=== PATIENT | female | born 2000 | race Caucasian/White ===

== ENCOUNTER 2021-07-05 08:39 | Observation (INO) ==
[2021-07-05 08:49] VITALS: BMI 32.9
--- NOTE | 2021-07-05 09:33 | DR.PREG ---
HPI Time seen Time Seen by Provider: 07/05/21 09:28 PCP Primary Care Physician: RACHANA HPI Comment HPI Comment: PATIENT IS 21YR OLD FEMALE IN ER WITH RLQ ABDOMINAL PAIN TIMES 2 DAYS. . LMP 0CT 2020. FIRST . DENIES VAGINAL BLEEDING OR TRAUMA. SHE IS 16 WEEKS . Chief Complaint Chief Complaint Doctors Comments: RLG ABDOMINAL PAIN TIMES 2 DAYS. Chief Complaint:: PT C/O LOWER ABD PAIN THAT HAS BEEN GOING ON FOR THE PAST 2 DAYS. PATIENT DENIES ANY VAGINAL BLEEDING OR DISCHARGE. PATIENT IS KNOWN TO BE A G1,P0,A0. ELKIN 12/16/21 COVID-19 Coronavirus risk:travel/contact w/high risk person: No Has patient experienced Coronavirus symptoms: No Nurses Notes Reviewed Nurses Notes Review: Yes Source History Provided: Patient Mode of Arrival Mode of Arrival: Ambulatory Context Complains of: Pelvic pain History of: None : 1 Para: 0 Abortions: 0 Location Location: pain: RLQ Quality Vaginal fluid leakage color: denies None Timing Onset of Chief Complaint: 07/03/21 Came on: Suddenly Pain: Present Now Pain: Regular Severity Vaginal Bleeding: Deferred Vaginal Leakage: None Associated Signs & Symptoms Asociated signs & symptoms: None PMH PMH Past Medical History: No Past Surgical History: No Family History History of Family Medical Conditions: No Social History Does patient currently use any type of tobacco product: Yes Have you used tobacco products in the last 12 months: Yes Type of Tobacco Use: VAPE Does any household member use tobacco: Yes Alcohol Use: None Do you use any recreational Drugs:: No Lives With: Family Lives Where: Home Travel Risk Coronavirus risk:travel/contact w/high risk person: No Has patient experienced Coronavirus symptoms: No Infectious screening In the last 2 months have you had wt loss of >10#?: NO Have you had fever, night sweats or hemotysis?: No Have you traveled outside the country in the last 6 months?: No Isolation: Standard ROS Review of Systems Constitutional: See HPI, Weakness and Fatigue; negative Fever Eyes: No Symptoms Reported and See HPI ENTM: No Symptoms Reported and See HPI; negative Nose Discharge and Nose Congestion Respiratoy: No Symptoms Reported and See HPI; negative Moist Cough, Short of Breath and Wheezing Cardiovascular: No Symptoms Reported and See HPI; negative Chest Pain Gastrointestinal/Abdominal: See HPI, Abdominal Pain and Vomiting; negative Diarrhea Genitourinary: No Symptoms Reported and See HPI; negative Dysuria, Frequency and Hematuria Neurological: See HPI and Weakness; negative Headache and Dizziness Musculoskeletal: No Symptoms Reported and See HPI; negative Back Pain Integumentary: No Symptoms Reported and See HPI; negative Rash and Juandice Hematologic/Lymphatic: No Symptoms Reported and See HPI; negative Easy Bruising Endocrine: No Symptoms Reported and See HPI; negative Increased Thirst and Increased Urine Psychiatric: No Symptoms Reported and See HPI All Other Systems: Reviewed and Negative PE Vital Signs Vitals: Temperature 98.1 F Pulse Rate 97 Respiratory Rate 20 Blood Pressure 149/94 O2 Sat by Pulse Oximetry 97 General Limitations: No Limitations General Appearance: Alert and In No Apparent Distress Head Head Exam: Normal Inspection Eyes Eye exam: Normal Appearance; negative Scleral Icterus and Conjunctival Injection ENT ENT Exam: Normal Exam, Normal Oropharynx, Normal External Ear Exam and TM's Normal Bilaterally Neck Neck Exam: Normal Inspection; negative Tenderness Chest Chest Inspection: Normal Inspection and Symmetric Chest Wall Rise; negative Tenderness Respiratory Respiratory Exam: Normal Lung Sounds Bilat; negative Accessory Muscle Use, Chest Wall Tenderness and Respiratory Distress Respiratory Exam: Bilateral: Clear to Auscultation Cardiovascular Cardiovascular Exam: Regular Rate, Normal Rhythm and Normal Heart Sounds; negative Systolic Murmur and Diastolic Murmur Abdominal Exam Abdominal Exam: Normal Bowel Sounds, Soft and Tenderness Abdominal Tenderness: RLQ, LLQ, Suprapubic and Moderate Blood: None Amniotic fluids: None Nitrazine: Negative Back Back Exam: Normal Inspection; negative (R) CVA Tenderness and (L) CVA Tenderness Extremeties Extremities Exam: Normal Inspection and Normal Capillary Refill Neurologic Neurological Exam: Alert and Oriented X3; negative Motor Sensory Deficit Psychiatric Psychiatric Exam: Normal Affect and Normal Mood Skin Skin Exam: Warm, Dry, Intact and Normal Color MDM Additional Information Obtained Additional Information Obtained From: Family Differential Diagnosis Differential Diagnosis: threatened, Abruptio placentae, Appendicitis, Placenta previa, Pyelonephritis: acute and Urinary tract infection COURSE Treatment Treatment: SEE ORDERS DONE WHILE PATIENT IN ER. NS 1L IV BOLUS. TYLENOL 1GM IVPB IN ER. Reevaluation 1st: Improved Education/Counseling Education/Counseling: Patient and Family Educated On: Diagnosis ROR Labs Reviewed Laboratory Results Reviewed?: Yes Result Diagrams: 07/06/21 05:40 07/06/21 05:40 Laboratory: WBC 17.1 X10^3/uL (3.6-10.0) H 07/05/21 09:53 RBC 4.35 X10^6/uL (3.5-5.4) 07/05/21 09:53 Hgb 13.2 g/dL (12.0-16.0) 07/05/21 09:53 Hct 38.1 % (36.0-47.0) 07/05/21 09:53 MCV 87.6 fL (80.0-100.0) 07/05/21 09:53 MCH 30.3 pg (27.0-34.0) 07/05/21 09:53 MCHC 34.6 g/dL (33.0-35.0) 07/05/21 09:53 RDW 12.8 % (11.6-16.5) 07/05/21 09:53 Plt Count 246 X10^3/uL (150.0-450.0) 07/05/21 09:53 MPV 9.6 fL (7.4-11.0) 07/05/21 09:53 Neut % (Auto) 87.4 % (42.0-75.0) H 07/05/21 09:53 Lymph % (Auto) 8.7 % (21.0-51.0) L 07/05/21 09:53 [place] % (Auto) 3.4 % (0.0-13.0) 07/05/21 09:53 Eos % (Auto) 0.1 % (0.9-2.9) L 07/05/21 09:53 Baso % (Auto) 0.4 % (0.2-1.0) 07/05/21 09:53 Neut # (Auto) 14.9 x10^3/uL (2.2-4.8) H 07/05/21 09:53 Lymph # (Auto) 1.5 X10^3/uL (1.3-2.9) 07/05/21 09:53 [place] # (Auto) 0.6 x10^3/uL (0.3-0.8) 07/05/21 09:53 Eos # (Auto) 0.0 x10^3/uL (0.0-0.2) 07/05/21 09:53 Baso # (Auto) 0.1 X10^3/uL (0.0-0.1) 07/05/21 09:53 Absolute Nucleated RBC 0.0 /100WBC 07/05/21 09:53 Sodium 140 mmol/L (136-145) 03 09:53 Corrected Sodium 141 mmol/L (136-145) 07/05/21 09:53 Potassium 3.5 mmol/L (3.5-5.1) 07/05/21 09:53 Chloride 103 mmol/L (98-107) 07/05/21 09:53 Carbon Dioxide 25.0 mmol/L (21-32) 07/05/21 09:53 BUN 8 mg/dL (7-18) 07/05/21 09:53 Creatinine 0.61 mg/dL (0.55-1.02) 03 09:53 Est GFR (MDRD) Af Amer > 60 (>60) 03 09:53 Est GFR (MDRD) Non-Af > 60 (>60) 07/05/21 09:53 Glucose 136 mg/dL (65-99) H 07/05/21 09:53 Calcium 8.7 mg/dL (8.5-10.1) 07/05/21 09:53 Corrected Calcium 9.3 mg/dL (8.5-10.1) 07/05/21 09:53 Total Bilirubin 0.30 mg/dL (0.2-1.0) 07/05/21 09:53 AST 29 Units/L (15-37) 07/05/21 09:53 ALT 52 Units/L (12-78) 07/05/21 09:53 Alkaline Phosphatase 65 Units/L (46-116) 07/05/21 09:53 Total Protein 7.7 g/dL (6.4-8.2) 07/05/21 09:53 Albumin 3.3 g/dL (3.4-5.0) L 07/05/21 09:53 Globulin 4.4 g/dL (2.5-4.5) 07/05/21 09:53 Albumin/Globulin Ratio 0.8 Ratio (1.1-2.1) L 07/05/21 09:53 HCG, Quant 25470 mIU/mL (0-6) H 07/05/21 09:53 Specimen Type Clean catch urine 07/05/21 11:25 Urine Color Yellow (YELLOW) 07/05/21 11:25 Urine Appearance Clear (CLEAR) 07/05/21 11:25 Urine pH 8.0 (5.0 - 8.0) 07/05/21 11:25 Ur Specific [place] 1.015 (1.000-1.030) 07/05/21 11:25 Urine Protein Negative (NEGATIVE) 07/05/21 11:25 Urine Glucose (UA) Negative (NEGATIVE) 07/05/21 11:25 Urine Ketones 1+ (NEGATIVE) 07/05/21 11:25 Urine Occult Blood Negative (NEGATIVE) 07/05/21 11:25 Urine Nitrite Negative (NEGATIVE) 07/05/21 11:25 Urine Bilirubin Negative (NEGATIVE) 07/05/21 11:25 Urine Urobilinogen Normal (NORMAL) 07/05/21 11:25 Ur Leukocyte Esterase Negative (NEGATIVE) 07/05/21 11:25 Urine Opiates Screen Negative (NEG=<300) 07/05/21 11:25 Urine Methadone Screen Negative (NEG=<300) 07/05/21 11:25 Ur Barbiturates Screen Negative (NEG=<200) 07/05/21 11:25 Ur Phencyclidine Scrn Negative (NEG=<25) 07/05/21 11:25 Ur Amphetamines Screen Negative (NEG=<1000) 07/05/21 11:25 U Benzodiazepines Scrn Negative (NEG=<200) 07/05/21 11:25 Urine Cocaine Screen Negative (NEG=<300) 07/05/21 11:25 U Marijuana (THC) Screen Positive (NEG=<50) A 07/05/21 11:25 SARS CoV-2 RNA Rapid SAGE Negative (NEGATIVE) 07/05/21 13:15 XRAY XRAY Interpreted by: Radiologist (US REPORT NOTED.) Opioid Opioid Risk Tool Age (Zackery box if 16-45): Yes History of Preadolescent Sexual Abuse: No Total: 1 Total Score Risk Category: Low Risk Copyright: [employer]RAL predicting aberrant behaviors Diagnosis Discharge Problem: Small bowel obstruction Instructions Instructions: Nausea and Vomiting, Adult Morning Sickness, [id number] Forms: Excuse From Work or School Precautions for COVID19 [facility] Patient [facility] Social Distancing
[2021-07-05] MEDS ORDERED: NS 1,000 ML IV 1,000 ML IV ONE (09:41)
[2021-07-05] MEDS ORDERED: ZOFRAN INJ 4 MG VIAL IVP ONE ×2 (09:43→13:11)
[2021-07-05] MEDS ORDERED: ZOFRAN INJ 4 MG VIAL ONE ×2 (09:46→13:22)
[2021-07-05] MEDS ORDERED: NS 1,000 ML IV 1,000 ML ONE ×2 (09:46→13:23)
[2021-07-05 10:06] LABS: BASOPHILS # (AUTO) 0.1 X10^3/uL (0.0-0.1); BASOPHILS % (AUTO) 0.4 % (0.2-1.0); EOSINOPHILS % (AUTO) 0.1 % (0.9-2.9); HEMATOCRIT 38.1 % (36.0-47.0); HEMOGLOBIN 13.2 g/dL (12.0-16.0); LYMPHOCYTES # (AUTO) 1.5 X10^3/uL (1.3-2.9); LYMPHOCYTES % (AUTO) 8.7 % (21.0-51.0); MEAN CORPUSCULAR HEMOGLOBIN 30.3 pg (27.0-34.0); MEAN CORPUSCULAR HGB CONC 34.6 g/dL (33.0-35.0); MEAN CORPUSCULAR VOLUME 87.6 fL (80.0-100.0); MEAN PLATELET VOLUME 9.6 fL (7.4-11.0); MONOCYTES # (AUTO) 0.6 x10^3/uL (0.3-0.8); MONOCYTES % (AUTO) 3.4 % (0.0-13.0); NEUTROPHILS # (AUTO) 14.9 x10^3/uL (2.2-4.8); NEUTROPHILS % (AUTO) 87.4 % (42.0-75.0); RED BLOOD COUNT 4.35 X10^6/uL (3.5-5.4); RED CELL DISTRIBUTION WIDTH 12.8 % (11.6-16.5); WHITE BLOOD COUNT 17.1 X10^3/uL (3.6-10.0)
[2021-07-05 10:16] LABS: ALANINE AMINOTRANSFERASE 52 Units/L (12-78); ALBUMIN 3.3 g/dL (3.4-5.0); ALKALINE PHOSPHATASE 65 Units/L (46-116); ASPARTATE AMINO TRANSFERASE 29 Units/L (15-37); BLOOD UREA NITROGEN 8 mg/dL (7-18); CALCIUM 8.7 mg/dL (8.5-10.1); CHLORIDE 103 mmol/L (98-107); COR CA(FOR HYPOALB) 9.3 mg/dL (8.5-10.1); COR NA(FOR HYPERGLY) 141 mmol/L (136-145); CREATININE 0.61 mg/dL (0.55-1.02); SODIUM 140 mmol/L (136-145); TOTAL PROTEIN 7.7 g/dL (6.4-8.2); eGFR NON BLACK RACES > 60 (>60)
[2021-07-05 11:00] LABS: HCG,QUANTITATIVE 18436 mIU/mL (0-6)
[2021-07-05] MEDS ORDERED: OFIRMEV IV 1000 MG VIAL 1,000 MG/100 ML VIAL IV ONE ×2 (11:00→11:01)
--- NOTE | 2021-07-05 11:33 | US ---
OB GREATER THAN 14 WEEKS LIMITHISTORY: RLQ PAIN, ELEVATED WBC, VOMITINGComparison:NoneTechnique: Multiple grayscale and color flow Doppler images of the pelvis were obtained with focused evaluation of the fetus.Findings:A viable single intrauterine is identified with heart tones of 162 beats per minute. Acephalic presentation is observed with a fundal placenta. CANDACE of cm.BPD 3.4 16 weeks 4 daysHC 13.2 16 weeks 5 daysIMPRESSION:A viable single intrauterine with an average ultrasound age of 16 weeks 5 days correspond to an estimated date of delivery of 12/15/2021.Electronically signed by: FRANCK PATRICK (Jul 05, 2021 11:32:01)
[2021-07-05 11:35] LABS: BILIRUBIN,URINE NEGATIVE (NEGATIVE); BLOOD/HEMOGLOBIN,URINE NEGATIVE (NEGATIVE); GLUCOSE, URINE NEGATIVE (NEGATIVE); KETONES,URINE 1+ (NEGATIVE); LEUKOCYTE ESTERASE ,URINE NEGATIVE (NEGATIVE); NITRITES,URINE NEGATIVE (NEGATIVE); PROTEIN,URINE NEGATIVE (NEGATIVE); UROBILINOGEN,URINE NORMAL (NORMAL)
[2021-07-05 11:36] LABS: APPEARANCE,URINE CLEAR (CLEAR); COLOR,URINE YELLOW (YELLOW)
[2021-07-05] MEDS ORDERED: ROCEPHIN 1 GRAM IV PREMIX 1 G/50 ML IV.SOLN. IV ONE ×2 (13:13→13:23)
[2021-07-05] MEDS: NS 1,000 ML IV 1,000 ML IV SCH ×3 (13:24→22:55)
[2021-07-05] MEDS ORDERED: TYLENOL #3 TAB (W/CODEINE) PO PRN ×2 (14:10→18:53)
[2021-07-05] MEDS ORDERED: TYLENOL #3 TAB (W/CODEINE) PO ONE (14:13)
[2021-07-05] MEDS ORDERED: ZOFRAN INJ 4 MG VIAL IVP PRN (15:48)
[2021-07-05] MEDS ORDERED: TYLENOL 325 MG TAB PO PRN (16:10)
[2021-07-05] MEDS: TYLENOL #3 TAB (W/CODEINE) PO PRN (20:17)
[2021-07-06] MEDS: TYLENOL #3 TAB (W/CODEINE) PO PRN ×2 (04:33→10:43)
[2021-07-06 06:24] LABS: BASOPHILS % (AUTO) 0 % (0.2-1.0); EOSINOPHILS % (AUTO) 0.1 % (0.9-2.9); HEMATOCRIT 32.3 % (36.0-47.0); HEMOGLOBIN 11.4 g/dL (12.0-16.0); LYMPHOCYTES # (AUTO) 2.6 X10^3/uL (1.3-2.9); LYMPHOCYTES % (AUTO) 15.8 % (21.0-51.0); MEAN CORPUSCULAR HEMOGLOBIN 30.6 pg (27.0-34.0); MEAN CORPUSCULAR HGB CONC 35.3 g/dL (33.0-35.0); MEAN CORPUSCULAR VOLUME 86.7 fL (80.0-100.0); MEAN PLATELET VOLUME 9.8 fL (7.4-11.0); MONOCYTES # (AUTO) 1.1 x10^3/uL (0.3-0.8); NEUTROPHILS # (AUTO) 12.5 x10^3/uL (2.2-4.8); NEUTROPHILS % (AUTO) 77.1 % (42.0-75.0); RED BLOOD COUNT 3.73 X10^6/uL (3.5-5.4); RED CELL DISTRIBUTION WIDTH 12.7 % (11.6-16.5); WHITE BLOOD COUNT 16.2 X10^3/uL (3.6-10.0)
[2021-07-06 06:26] LABS: ALANINE AMINOTRANSFERASE 68 Units/L (12-78); ALBUMIN 2.8 g/dL (3.4-5.0); ALKALINE PHOSPHATASE 54 Units/L (46-116); ASPARTATE AMINO TRANSFERASE 38 Units/L (15-37); BLOOD UREA NITROGEN 5 mg/dL (7-18); CALCIUM 7.8 mg/dL (8.5-10.1); CARBON DIOXIDE 22.5 mmol/L (21-32); CHLORIDE 106 mmol/L (98-107); COR CA(FOR HYPOALB) 8.8 mg/dL (8.5-10.1); CREATININE 0.46 mg/dL (0.55-1.02); SODIUM 139 mmol/L (136-145); TOTAL PROTEIN 6.6 g/dL (6.4-8.2); eGFR NON BLACK RACES > 60 (>60)
[2021-07-06] MEDS: NS 1,000 ML IV 1,000 ML IV SCH (06:34)
[2021-07-06] MEDS ORDERED: ROCEPHIN VIAL 1 GRAM 1 G in NS 100 ML IV 100 ML IV SCH (09:00)
--- NOTE | 2021-07-06 11:06 | DR.PROGNOT ---
Hospital Progress Notes - Progress Note for Day of: Progress Note Date: 07/06/21 - Chief Complaint Chief Complaint: was having lower abdominal pain last night . feeling better this am . vomited several times last night . afebrile . - Past Medical Family Social History Past Med/Fam/Surg Hx: No changes since H&P Allergies: Allergies No Known Drug Allergies Allergy (Verified 07/05/21 08:45) - Review Of Systems ROS: No change since H&P - Vital Signs Vital Signs: Temperature 98.9 F Pulse Rate [Right] 92 Pulse Rate 97 Respiratory Rate 18 Blood Pressure [Right Arm] 119/66 Blood Pressure 149/94 O2 Sat by Pulse Oximetry 98 - Physical Exam Oriented: Normal Eyes: Normal Ear: Normal Nose: Normal Respiratory: Normal Cardiovascular: Normal : Normal GI:Auscultation: Decreased GI:Palpation: Normal GI: Tenderness: Other (soft, flat abdomen with moderate lower abdominal tenderness . no rebound .. BS+) Speech Pattern: Clear - Laboratory and Diagnostics Result Diagrams: 07/06/21 05:40 07/06/21 05:40 Labs: Laboratory WBC 16.2 X10^3/uL (3.6-10.0) H 07/06/21 05:40 RBC 3.73 X10^6/uL (3.5-5.4) 07/06/21 05:40 Hgb 11.4 g/dL (12.0-16.0) L 07/06/21 05:40 Hct 32.3 % (36.0-47.0) L 07/06/21 05:40 MCV 86.7 fL (80.0-100.0) 07/06/21 05:40 MCH 30.6 pg (27.0-34.0) 07/06/21 05:40 MCHC 35.3 g/dL (33.0-35.0) H 07/06/21 05:40 RDW 12.7 % (11.6-16.5) 07/06/21 05:40 Plt Count 233 X10^3/uL (150.0-450.0) 07/06/21 05:40 MPV 9.8 fL (7.4-11.0) 07/06/21 05:40 Neut % (Auto) 77.1 % (42.0-75.0) H 07/06/21 05:40 Lymph % (Auto) 15.8 % (21.0-51.0) L 07/06/21 05:40 [place] % (Auto) 7.0 % (0.0-13.0) 07/06/21 05:40 Eos % (Auto) 0.1 % (0.9-2.9) L 07/06/21 05:40 Baso % (Auto) 0 % (0.2-1.0) L 07/06/21 05:40 Neut # (Auto) 12.5 x10^3/uL (2.2-4.8) H 07/06/21 05:40 Lymph # (Auto) 2.6 X10^3/uL (1.3-2.9) 07/06/21 05:40 [place] # (Auto) 1.1 x10^3/uL (0.3-0.8) H 07/06/21 05:40 Eos # (Auto) 0.0 x10^3/uL (0.0-0.2) 07/06/21 05:40 Baso # (Auto) 0.0 X10^3/uL (0.0-0.1) 07/06/21 05:40 Absolute Nucleated RBC 0.1 /100WBC 07/06/21 05:40 Sodium 139 mmol/L (136-145) 07/06/21 05:40 Corrected Sodium TNP 07/06/21 05:40 Potassium 3.2 mmol/L (3.5-5.1) L 07/06/21 05:40 Chloride 106 mmol/L (98-107) 07/06/21 05:40 Carbon Dioxide 22.5 mmol/L (21-32) 07/06/21 05:40 BUN 5 mg/dL (7-18) L 07/06/21 05:40 Creatinine 0.46 mg/dL (0.55-1.02) L 07/06/21 05:40 Est GFR (MDRD) Af Amer > 60 (>60) 07/06/21 05:40 Est GFR (MDRD) Non-Af > 60 (>60) 07/06/21 05:40 Glucose 108 mg/dL (65-99) H 07/06/21 05:40 Calcium 7.8 mg/dL (8.5-10.1) L 07/06/21 05:40 Corrected Calcium 8.8 mg/dL (8.5-10.1) 07/06/21 05:40 Magnesium 2.0 mg/dL (1.7-2.9) 07/06/21 05:40 Total Bilirubin 0.40 mg/dL (0.2-1.0) 07/06/21 05:40 AST 38 Units/L (15-37) H 07/06/21 05:40 ALT 68 Units/L (12-78) 07/06/21 05:40 Alkaline Phosphatase 54 Units/L (46-116) 07/06/21 05:40 Total Protein 6.6 g/dL (6.4-8.2) 07/06/21 05:40 Albumin 2.8 g/dL (3.4-5.0) L 07/06/21 05:40 Globulin 3.8 g/dL (2.5-4.5) 07/06/21 05:40 Albumin/Globulin Ratio 0.7 Ratio (1.1-2.1) L 07/06/21 05:40 HCG, Quant 81265 mIU/mL (0-6) H 07/05/21 09:53 Specimen Type Clean catch urine 07/05/21 11:25 Urine Color Yellow (YELLOW) 07/05/21 11:25 Urine Appearance Clear (CLEAR) 07/05/21 11:25 Urine pH 8.0 (5.0 - 8.0) 07/05/21 11:25 Ur Specific [place] 1.015 (1.000-1.030) 07/05/21 11:25 Urine Protein Negative (NEGATIVE) 07/05/21 11:25 Urine Glucose (UA) Negative (NEGATIVE) 07/05/21 11:25 Urine Ketones 1+ (NEGATIVE) 07/05/21 11:25 Urine Occult Blood Negative (NEGATIVE) 07/05/21 11:25 Urine Nitrite Negative (NEGATIVE) 07/05/21 11:25 Urine Bilirubin Negative (NEGATIVE) 07/05/21 11:25 Urine Urobilinogen Normal (NORMAL) 07/05/21 11:25 Ur Leukocyte Esterase Negative (NEGATIVE) 07/05/21 11:25 Urine Opiates Screen Negative (NEG=<300) 07/05/21 11:25 Urine Methadone Screen Negative (NEG=<300) 07/05/21 11:25 Ur Barbiturates Screen Negative (NEG=<200) 07/05/21 11:25 Ur Phencyclidine Scrn Negative (NEG=<25) 07/05/21 11:25 Ur Amphetamines Screen Negative (NEG=<1000) 07/05/21 11:25 U Benzodiazepines Scrn Negative (NEG=<200) 07/05/21 11:25 Urine Cocaine Screen Negative (NEG=<300) 07/05/21 11:25 U Marijuana (THC) Screen Positive (NEG=<50) A 07/05/21 11:25 SARS CoV-2 RNA Rapid SAGE Negative (NEGATIVE) 07/05/21 13:15 - Assessment and Plan 1: abdominal pain . no acute appendicitis now . to start on clear liquid diet .. same IVF and observe today - Problem Patient Problems: Patient Problems Small bowel obstruction (Acute) K56.764
[2021-07-06 13:13] VITALS: BP 130/78
== END 2021-07-06 14:21 | disposition home or self-care (01) ==
LOC: ER 08:44 → MED/SURG 08:44
PROVIDERS: ADMIT Specialist; ATTEND Specialist
DX: F12.90 Cannabis use, unspecified, uncomplicated; R10.32 Left lower quadrant pain; Z20.822 Contact with and (suspected) exposure to COVID-19; Z3A.16 16 weeks gestation of pregnancy; K56.699 Other intestinal obstruction unspecified as to partial versus complete obstruction